=== PATIENT | male | born 1985 | race Hispanic/Latino ===

== ENCOUNTER 2017-04-29 11:35 | Observation (INO) | payer OTHER ==
[~2017-04-29] VITALS: Ht 167.6 cm; Wt 74.8 kg
[2017-04-29] VITALS (8 sets, daily range): BP systolic 124–143; BP diastolic 65–96; PULSE 75–116; RESP 18–20; O2SAT 95–100
[2017-04-29 12:35] LABS: BASOPHILS % (AUTO) 0.2 % (0-3); MONOCYTES % (AUTO) 7.9 % (4-12); Mean Corpuscular Hemoglobin 28.5 pg (27.0-35.0); Mean Corpuscular Volume 85.2 fL (81-100); NEUTROPHILS % (AUTO) 52.5 % (40-74); Platelet Count 224 bil/L (150-400)
[2017-04-29] MEDS ORDERED: 0.9% Sodium Chloride 1,000 ML IV ONE (12:35)
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
[2017-04-29] MEDS ORDERED: LITH300T2 PO (14:27)
[2017-04-29] MEDS ORDERED: CITA20TA PO (14:27)
[2017-04-29] MEDS ORDERED: Polyethylene Glycol (PEG) 17 Gm Powder PO PRN (14:35)
[2017-04-29] MEDS ORDERED: Ondansetron 2 mg/mL 2 mL Inj IVPUSH PRN (14:35)
[2017-04-29] MEDS ORDERED: Alum-Mag Hydrox-Simeth 30 mL Suspension PO PRN (14:35)
[2017-04-29] MEDS ORDERED: 0.9% Sodium Chloride 1,000 ML IV SCH (14:40)
--- NOTE | 2017-04-29 14:57 | NUR ---
Admit Pt arrived on unit anxious, restless,and had scattered thoughts switching to random subjects mid-sentence. He was unable to sit still and stated that he felt that "his mind is racing and my thoughts are going quicker than I can speak." PT also stated that he felt like he was on meth. MD aware and at bedsidePer tele: ST 104 all other vs wnl. Pt had 4 bottles of medications that were sent brought to pharmacy. Pt was compliant with care. Denied that he took the medications in attempt to harm himself but just wanted his back pain to go away. He acknowledge prior suicide attempts via the same manner just with lithium. Denied any suicidal ideation and the he was happy. Pts belongings were locked in closet as of which he was compliant with. Patient has sutures on right palm that were placed in ED and are wrapped in coban. Sitter at bedside.
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
[2017-04-29] MEDS ORDERED: NPR500T PO (16:18)
[2017-04-29] MEDS ORDERED: TRAZ-115 PO (16:18)
--- NOTE | 2017-04-29 23:48 | NUR ---
D/C AMA @23:22 patient requested to D/C AMA and removed telemetry. Requested IV removal and return of Home medications from Pharmacy. Contacted Hospitalist Dr. Phipps who conducted a patient interview and contacted Mental Health concluding D/C was within reason. Gathered up belongings from room, removed IV, escorted to first floor and returned patients home medications. A friend met patient at ER entrance and patient left hospital. Patient indicated there was no harm planned for self but rather was going to [facility]. Potential harm to kidneys from medication taken before arrival, infection to hand and potential self harm before Psychiatric evaluation scheduled in AM explained and patient signed AMA paperwork. Patient behavior was pleasant and denied any visual/auditory hallucinations or disturbances. Alert and oriented x3.
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
== END 2017-04-29 23:25 | disposition left against medical advice (07) ==
LOC: SED 11:35 → EDBD 11:40 → MPC 14:45
PROVIDERS: ADMIT Family Medicine; ATTEND Family Medicine
DX: T39.311A Poisoning by propionic acid derivatives, accidental (unintentional), initial encounter (principal); T43.221A Poisoning by selective serotonin reuptake inhibitors, accidental (unintentional), initial encounter; F12.90 Cannabis use, unspecified, uncomplicated; F14.10 Cocaine abuse, uncomplicated; F19.10 Other psychoactive substance abuse, uncomplicated; F15.10 Other stimulant abuse, uncomplicated; F41.8 Other specified anxiety disorders; F31.9 Bipolar disorder, unspecified; M54.30 Sciatica, unspecified side; S61.411A Laceration without foreign body of right hand, initial encounter; F43.10 Post-traumatic stress disorder, unspecified; W25.XXXA Contact with sharp glass, initial encounter; Y93.89 Activity, other specified; Y92.009 Unspecified place in unspecified non-institutional (private) residence as the place of occurrence of the external cause; Y99.8 Other external cause status; F17.210 Nicotine dependence, cigarettes, uncomplicated; Z91.5 Personal history of self-harm; Z53.21 Procedure and treatment not carried out due to patient leaving prior to being seen by health care provider
CPT/HCPCS: 36415; 80053; 82075; 85025; 93005; 96360; 99285; G0378; G0480; J7030